=== PATIENT | male | born 1955 | race Caucasian/White ===

== ENCOUNTER 2023-08-26 08:08 | Outpatient (AMB) | payer MEDICARE, SELFPAY ==
--- NOTE | 2023-08-26 08:16 | AM.OFFWIN_ITS ---
Intake Vital Signs 08/26/23 08:17 Height 5 ft 8 in Weight 201 lb BMI 30.6 BP 118/74 Blood Pressure Location Rt brachial Position Sitting Pulse 82 Pulse Source Pulse Oximeter Pulse Oximetry (%) 96 Oxygen Delivery Method Room Air Intake Visit Reasons: EP ?Sinus Infection Intake Note: Patient here for head cold since saturday, cough, slight chest irritation and phlegm Patient Tobacco Use Status: Former Tobacco user Allergies cephalexin Allergy (Intermediate, Verified 08/26/23 08:19) hives Do you need a note to return to daycare/school/sports/work: No HPI EP ?Sinus Infection HPI Details Patient presents for a sick visit. Reporting symptoms of sinus congestion, sore throat and difficulty swallowing. Low-grade fever. No family member is sick. No recent travel. Patient reports symptoms of malaise and fatigue. [facility] Social History Patient Tobacco Use Status: Former Tobacco user Physical Exam Vital Signs: Last Vital Signs Pulse 82 08/26/23 08:17 BP 118/74 08/26/23 08:17 Pulse Ox 96 08/26/23 08:17 Oxygen Delivery Method Room Air 08/26/23 08:17 BMI result Body Mass Index 30.6 Const General: cooperative and healthy appearing Nutritional Appearance: well nourished Orientation/consciousness: patient oriented x3 Limitations: no limitations HEENT Head: Yes normal to inspection Eyes General: appearance normal, both eyes and all related structures Neck Neck: Yes normal visual inspection Chest Chest palpation & inspection: normal palpation of entire chest wall Resp Effort & Inspection: normal respiratory effort Neuro General: patient oriented x3 Assessment & Plan Assessment & Plan (1) Upper respiratory tract infection: Code(s): J06.9 - Acute upper respiratory infection, unspecified Plan: Antibiotics ordered. Increase fluid intake. Tylenol for aches and pains. If symptoms worsen, follow-up here for a recheck. Coding Level of Care Code Est Pt Level 3 (11141) Diagnoses Upper respiratory tract infection J06.9
[2023-08-26 08:17] VITALS: BP 118/74; PULSE 82; O2SAT 96; BMI 30.6
== END 2023-08-26 08:38 | disposition home or self-care (01) ==
PROVIDERS: PCP Internal Medicine; Visit Provider Internal Medicine
DX: J06.9 Acute upper respiratory infection, unspecified (principal)
CPT/HCPCS: 99213

== ENCOUNTER 2024-08-13 08:04 | Outpatient (AMB) | payer MEDICARE, SELFPAY ==
[2024-08-13 08:07] VITALS: BP 142/90; PULSE 69; TEMP 36.8; O2SAT 98; BMI 30.1
--- NOTE | 2024-08-13 08:07 | MHC.OFFWIV ---
Intake Vital Signs 08/13/24 08:07 Height 5 ft 8 in Weight 198 lb BMI 30.1 BP 142/90 H Blood Pressure Location Lt brachial Position Sitting Pulse 69 Pulse Source Pulse Oximeter Temp 98.2 F Temp Source Oral Pulse Oximetry (%) 98 Oxygen Delivery Method Room Air Intake Visit Reasons: EP sore throat/respiratory Intake Note: Patient here for respiratory issues which has been going on for about 5 days. Patient Tobacco Use Status: Former Tobacco user Allergies cephalexin Allergy (Intermediate, Verified 08/13/24 08:21) hives Do you need a note to return to daycare/school/sports/work: No HPI EP sore throat/respiratory HPI Details This note is constructed using voice recognition software. While every effort has been made to ensure accuracy, recreation program coordinator errors may have been included. The patient is a 69 year old male who presents to the clinic today with pharyngitis, cough for the past 5 days. He denies fever, chills, shortness of breath, sick exposures. He does report that he gets symptoms similar to this every year about this time a year. He also notes that he recently had a tympanostomy tube removed from his left ear about a month ago. He reports that generally he feels well, and his biggest concern is the pharyngitis. [facility] Social History Patient Tobacco Use Status: Former Tobacco user Review of Systems Const All systems reviewed & are unremarkable except as noted in HPI and below Physical Exam Vital Signs: Last Vital Signs Temp 98.2 F 08/13/24 08:07 Pulse 69 08/13/24 08:07 BP 142/90 H 08/13/24 08:07 Pulse Ox 98 08/13/24 08:07 Oxygen Delivery Method Room Air 08/13/24 08:07 BMI result Body Mass Index 30.1 Const General: cooperative, healthy appearing, comfortable and no acute distress Orientation/consciousness: patient oriented x3 Limitations: no limitations HEENT Head: Yes normal to inspection Ears: hearing grossly normal bilaterally, external ears normal and TM abnormal (Lef TM scarring present) retracted on the right General nose exam: Normal external nose present, No nasal discharge present and Abnormal mucous membranes and turbinates present boggy and pale Face and sinus: Yes normal facial exam and Yes sinuses nontender Mouth: Normal oral and palatal mucosa present and moist mucous membranes Throat: Yes tonsils normal, Yes uvula midline, Yes posterior oropharynx abnormal (Erythema), Yes postnasal drainage and Yes cobblestoning Eyes General: appearance normal, both eyes and all related structures Neck Neck: Yes normal visual inspection Resp Effort & Inspection: normal respiratory effort, able to speak in complete sentences, Actively coughing, no respiratory distress, not tachypneic, no tripod positioning and no use of accessory muscles Auscultation: clear to auscultation bilaterally Cardio Rate: regular rate Rhythm: regular rhythm Heart sounds: normal S1 and S2 Skin General skin exam: no rashes or lesions noted Neuro General: patient oriented x3 Extrem General: Yes normal to inspection and Yes no clubbing, cyanosis or edema Assessment & Plan Assessment & Plan (1) Allergic rhinitis: Code(s): J30.9 - Allergic rhinitis, unspecified Qualifiers: Allergic rhinitis trigger: pollen Allergic rhinitis seasonality: seasonal Qualified Code(s): J30.1 - Allergic rhinitis due to pollen Plan: Rapid strep test negative. Supportive measures encouraged and reviewed. Advised patient to try a Flonase nasal spray and second-generation antihistamine such as Zyrtec, Claritin, Edie or similar. Advised consideration of sinus rinse if needed. Advised patient to follow up with primary care provider with worsening or failure to resolve. Viral swab obtained to rule out Covid based on symptoms. Advised mask wearing while symptomatic and quarantine per current CDC guidelines. Reviewed at home support methods including hydration, humidification, vix vapor rub, sinus rinse. Advised follow up with worsening symptoms such as dyspnea at rest, which would require emergent evaluation. Plan See above for full details and plan. Orders: Orders SARS-CoV2/FLU/RSV Today J06.9 - Acute upper respiratory infection, unspecified Coding Level of Care Code Est Pt Level 3 (41601) Diagnoses Seasonal allergic rhinitis due to pollen J30.1 Allergic rhinitis trigger: pollen Allergic rhinitis seasonality: seasonal
== END 2024-08-13 09:14 | disposition home or self-care (01) ==
PROVIDERS: PCP Internal Medicine; Visit Provider Registered Nurse
DX: Z13.9 Encounter for screening, unspecified (principal); J30.1 Allergic rhinitis due to pollen

== ENCOUNTER 2025-07-10 09:12 | Outpatient (AMB) | payer MEDICARE, SELFPAY ==
--- NOTE | 2025-07-10 09:12 | MHC.OFFWIV ---
Intake Vital Signs 07/10/25 09:13 07/10/25 09:13 Height 20 ft 5 ft 8 in Weight 202 lb BMI 30.7 BP 132/64 Blood Pressure Location Lt brachial Position Sitting Pulse 67 Pulse Source Pulse Oximeter Temp 98.8 F Temp Source Oral Pulse Oximetry (%) 98 Oxygen Delivery Method Room Air Intake Visit Reasons: EP-Lt ankle bite/swollen Intake Note: Pt is here today c/o Lt ankle ?insect or spider bite: red and swollen x2wks Patient Tobacco Use Status: Former Tobacco user Allergies cephalexin Allergy (Intermediate, Verified 07/10/25 09:14) hives HPI HPI Comments History of Present Illness Details This is a 70-year-old male presenting for evaluation of a red lesion on the back of his left ankle that has been present for the past 2 weeks. Patient believes it was a ?bite? from a spider or tick however is unable to recall a specific event or visualizing such an insect. Patient states that it will occasionally become swollen and irritated. He denies having any fevers, chills, pain with ambulation or discharge from the lesion. [facility] Social History Patient Tobacco Use Status: Former Tobacco user Review of Systems Const All systems reviewed & are unremarkable except as noted in HPI and below Reports no additional complaints, Denies body aches, Denies chills, Denies fatigue and Denies fever(s) Eyes Reports no additional complaints ENT Reports no additional complaints Resp Reports no additional complaints Skin/Breast Reports as per HPI, Denies furuncle, Denies dry skin, Denies pruritus and Reports new lesions Neuro Reports no additional complaints Psych Reports no additional complaints Endo Reports no additional complaints and Denies fatigue Physical Exam Vital Signs: BMI result Body Mass Index 30.7 Const General: cooperative, healthy appearing, comfortable, no acute distress, well developed, alert, awake and Physically active; No acute distress or ill appearing Nutritional Appearance: well nourished Orientation/consciousness: patient oriented x3 Limitations: no limitations Skin Other: there is a 0.75 ovaloid, erythematous, indurated, non.tender lesion without warmth, tenderness or fluctuation located on the posterior ankle superior of the Achilles tendon. There is no surrounding erythema or clinical evidence of a secondary cellulitis, no evidence of a retained foreign body or subcutaneous purulence. Neuro General: patient oriented x3 Psych Appearance: grossly normal Mental Status: mental status grossly normal Insight: Good insight present (Psych) Judgement: Good judgement present (Psych) Assessment & Plan Assessment & Plan (1) Lesion of soft tissue of lower leg and ankle: Comment: There is no clinical evidence of a retained foreign body, cellulitis or abscess formation. Patient is instructed to take pictures of this lesion with a ruler or other item for measurement/perspective and follow up with his primary care provider in 2 weeks, as previously scheduled, for further evaluation and possible biopsy. No antibiotic therapy is warranted at this time. Code(s): M79.9 - Soft tissue disorder, unspecified Plan: Follow up with PCP in 2 weeks for further evaluation and care. Coding Level of Care Code Est Pt Level 3 (48667) Diagnoses Lesion of soft tissue of lower leg and ankle M79.9 Time Spent (min) 20
[2025-07-10 09:13] VITALS: BP 132/64; PULSE 67; TEMP 37.1; O2SAT 98; BMI 30.7
--- OUTSIDE RECORDS SUMMARY | 2025-07-10 09:14 | XMS_ITS | Clinical Summary ---
Author Organization [address] Address [address] [place] [address] Phone Care Team Providers Care Armored Car Driver Name Role Phone Jeremy Renner MD Primary Care Provider [phone] Allergies Active Allergy Reactions Criticality Noted Date Comments Cephalexin 04/13/2025 Other Reaction(s): full body hives Medications losartan (COZAAR) 100 mg tablet Take 1 tablet (100 mg total) by mouth 1 (one) time each day. Active simvastatin (ZOCOR) 40 mg tablet Take 0.5 tablets (20 mg total) by mouth. 07/01/2013 Active traZODone (DESYREL) 50 mg tablet Take 1 tablet (50 mg total) by mouth at bedtime as needed. at bedtime Active meloxicam (MOBIC) 15 mg tablet TAKE 1 TABLET BY MOUTH DAILY AFTER MEAL 04/05/2025 Active acetaminophen (TYLENOL) 500 mg tablet TAKE 2 TABLETS BY MOUTH EVERY 8 HOURS FOR 15 DAYS 03/26/2025 Active aspirin 325 mg EC tablet Take 1 tablet (325 mg total) by mouth 1 (one) time each day. for 30 days 03/26/2025 Active Active Problems Problem Noted Date Diagnosed Date Back pain 04/13/2025 Assessment & Plan (04/13/2025 4:57 PM EDT): Mr. Galindo describes about a month of left-sided low back pain with radiation to the left buttock and posterior thigh. This persisted despite his typical exercise and stretching routine. Fortunately, a couple of weeks ago it began to resolve. At this point he is basically pain-free. He understands that he has to watch the way he does things and use good ergonomics. We talked about appropriate use of NSAIDs. He is welcome to follow-up with us in the future on an as-needed basis. Benign essential hypertension 04/13/2025 Carcinoma of prostate (CMS/HCC V24, CMS/HCC V28) 04/13/2025 Combined forms of age-related cataract, bilatera l 04/13/2025 Dyslipidemia 04/13/2025 Hearing loss 04/13/2025 High cholesterol 04/13/2025 Hypertension 04/13/2025 Lung nodule 04/13/2025 NARESH (obstructive sleep apnea) 04/13/2025 Tightness of right gastrocnemius muscle 02/06/20 25 Swollen leg 12/07/2022 Overview (04/12/2025): Last Assessment & Plan: Mr. Galindo's right leg is a little bit swollen at the calf compared to the left leg. We will send him for an ultrasound to rule out a DVT. Lumbar radiculopathy 09/07/2022 Overview (04/12/2025): Last Assessment & Plan: Mr. Galindo is approximately 2 weeks status post right L5-S1 minimally invasive decompression and foraminotomy. He has had relief from some symptoms and other symptoms are little more intense. Overall he does note some improvement and is pleased with his early postoperative results and looking forward to more improvement in the future. We discussed nerve root healing, expectations, and timeline. He is taking Tylenol and will add ibuprofen. We talked about a short course of oral steroids or starting a neuropathic pain medication such as Neurontin but he declined both offers. He will call if things or not improving. Encounters Date Type Department Care Team Description 04/13/2025 3:00 PM EDT Office Visit [facility]surgery [facility] [address] [place] [id number] Odin Stevenson PA Acute left-sided low back pain with left-sided sciatica (Primary Dx) from Last 3 Months Immunizations Name Administration Dates Next Due Influenza, Unspecified 08/29/2022 Moderna SARS-CoV-2 COVID-19, mRNA, LNP-S, preservative free 01/24/2021,12/27/2020 Pneumococcal Conjugate Vaccine, 7 Valent 023 Pneumococcal polysaccharide 23 valent (Pneumovax 23) 2yo and older 10/04/2017 Tdap Tetanus diptheria acell ular pertussis (Boostrix; Adacel) 7yo and older 10/11/2021,04/12/2016 Zoster recombinant (Shingrix) 19yo and older ,02/13/2022 Surgical History Surgery Date Site/Laterality Comments HAND SURGERY 2019 Left PROCEDURE: HISTORICAL HAND SURGERY Medical History Medical History Date Comments Depressive disorder DX:Depressiv e disorder Heart disease DX:Heart disease Essential hypertension DX:Essent ial hypertension Mixed hyperlipidemia DX:Mixed hy perlipidemia Social History Tobacco Use Types Packs/Day Years Used Date Smoking Tobacco: Never Smokeless Tobacco: Never Tobacco Cessation:Counseling Given: Not Answered Alcohol Use Standard Drinks/Week Comments Never 0 (1 standard drink = 0.6 oz pur e alcohol) Sex and Gender Information Value Date Recorded Sex Assigned at Not on file Legal Sex Male 8:53 PM EST Gender Identity Not on file Sexual Orientation Not on file Obstetrics History Last Filed Vital Signs Vital Sign Reading Time Taken Comments Blood Pressure - - Pulse - - Temperature - - Respiratory Rate - - Oxygen Saturation - - Inhaled Oxygen Concentration - - Weight 90.7 kg (200 lb) 04/13/2025 3:15 PM EDT Height 172.7 cm (5' 8 ) 04/13/2025 3:15 PM EDT Body Mass Index 30.41 04/13/2025 3:15 PM EDT Plan of Treatment Health Maintenance Due Date Last Done Comments Pneumococcal Vaccine: 50+ Years (2 of 2 - PCV) 10/04/2018 10/04/2017 Cholesterol Screening (Lipid Panel) 11/22/2023 Colorectal Cancer Screening: Colonoscopy 11/22/2023 Falls Risk Assessment 11/22/2023 Hepatitis C Screening 11/22/2023 Medicare Annual Wellness Visit 11/22/2023 Social Influencers of Health Screening 11/22/2023 Depression Screening 10/28/2024 Hypertension/CHF/CAD Annual BMP Blood Test 04/14/2025 COVID-19 Vaccine (4 - 2024-2 6 season) 2025 08/21/2021, 01/24/2021, 12/27/2020 Influenza Vaccine (#1) 2025 08/29/2022 RSV Immunization Adult Patients (1 - 1-dose 75+ series) 2028 DTaP,Tdap,and Td Vaccines (3 - Td or Tdap) 10/11/2031 10/11/2021, 04/12/2016 Zoster Vaccines Completed 08/23/2022, 02/13/2022 HIB Vaccines Aged Out No longer eligi ble based on patient's age to complete this topic HPV Vaccines Aged Out No longer eligi ble based on patient's age to complete this topic Hepatitis A Vaccines Aged Out No long er eligible based on patient's age to complete this topic Hepatitis B Vaccines Aged Out No long er eligible based on patient's age to complete this topic IPV Vaccines Aged Out No longer eligi ble based on patient's age to complete this topic MMR Vaccines Aged Out No longer eligi ble based on patient's age to complete this topic Meningococcal ACWY Vaccine Aged Out N o longer eligible based on patient's age to complete this topic Meningococcal B Vaccine Aged Out No l onger eligible based on patient's age to complete this topic RSV Immunization Patients Under 20 months Aged Out No longer eligible b ased on patient's age to complete this topic Varicella Vaccines Aged Out No longer eligible based on patient's age to complete this topic Insurance MEDICARE [facility] Care Teams Armored Car Driver Relationship Specialty Start Date End Date Jeremy Renner MD [address] [place] [phone] PCP - General Internal Medicine 01/29/25
--- OUTSIDE RECORDS SUMMARY | 2025-07-10 09:14 | XMS_ITS | Patient Health Record ---
Author Organization [facility] Perla [address] Address [address] [facility] [place] [address] Care Team Providers Care Customer Solutions Supervisor Name Role Phone Jud OCHOA, Jeremy Primary Care Provider Unavailab Samy Puga Unavailable [phone] Allergies No Known Allergies Reason For Referral No Information Medications Medication SIG (Take, Route, Frequency, Duration) Notes Start Date End Date Status Aspirin 81 MG Orally Active Co Q 10 Active Ibuprofen Active Losartan Potassium 25 MG 1 tablet Orally Once a day; Duration: 30 day(s) Active Multi For Him Active Simvastatin Active ASO Ankle/Foot Stablizing AFO As directed Wear Daily; Duration: as needed 03/02/2022 Active Centrum Not-Taking Lisinopril Not-Takin g Immunizations Vaccine Route Administration Date Status Comme nts COVID-19 Moderna Vaccine Unknown 07/27/2021 Administered 1st 12/27/2020 2nd 01/24/2021 Social History Tobacco Use: Social History Observation Description Date Details (start date - stop date) Former Smoker NA - 10/28/1975 Tobacco Use/Smoking Question Answer Notes Are you a: former smoker When did you stop smoking? 10/28/1975 Additional Findings: Tobacco Non-User Current no n-smoker Alcohol Screen Question Answer Notes Did you have a drink contain ing alcohol in the past year? Yes How often did you have a dri nk containing alcohol in the past year? 4 or more times a week (4 points) Points 4 Interpretation Positive Tobacco use other than smoking: Question Answer Notes Are you an other tobacco user? No Plan Of Treatment Pending Test Test Name Order Date X ray : Foot, right 3V 11/14/[id number], [id number] INJECT TENDON ORIGIN/INSER T 03/02/2022 Insurance Providers Payer Name Payer Address Payer Phone Subscriber Number Group Number Insured Name Patient Relationship to Insured Coverage Start Date Coverage End Date Medicare National Gov[employer] S[employer] [address] [place] [address] [id number] Walker Galindo Self - patient is the insured [employer] [address] [place] [address] [id number] Walker Galindo Self - patient is the insured Medical (General) History Medical History History ICD Code Cholesterol Heart disease Measles Mumps Chicken pox High blood pressure Back,Hip,and Knee pain Cardiomyopathy Colonic polyps Surgical History Surgery Date(Month/Year) left knee right knee Hand Surgery-left 06/2018 R leg Suture 09/2021
--- OUTSIDE RECORDS SUMMARY | 2025-07-10 09:14 | XMS_ITS | Encounter Summary ---
Author Organization [facility] Address [address] [place] [address] Care Team Providers Care Hackler Doll Wigs Name Role Phone Jeremy Renner MD Primary Care Provider [phone] Encounter Details Date Type Department Care Team (Late st Contact Info) Description 01/29/2025 Lab Requisition [facility] - Main Lab [address] [facility] [address] Ken Prajapati MD [address] [place] [address] Urinary tract infection, site not specified Social History Tobacco Use Types Packs/Day Years Used Date Smoking Tobacco: Never Smokeless Tobacco: Never Alcohol Use Standard Drinks/Week Comments Never 0 (1 standard drink = 0.6 oz pur e alcohol) Sex and Gender Information Value Date Recorded Sex Assigned at Not on file Legal Sex Male 8:53 PM EST Gender Identity Not on file Sexual Orientation Not on file documented as of this encounter Plan of Treatment Not on file documented as of this encounter Procedures Procedure Name Priority Date/Time Associated Diagnosis Comments URINALYSIS WITH REFLEX MICROSCOPIC Routine 01/29/2025 9:15 AM EDT Urinary tract infection, site not specified URINALYSIS WITH REFLEX MICROSCOPIC Routine 01/29/2025 9:15 AM EDT Urinary tract infection, site not specified CULTURE URINE Routine 01/29/2025 9:15 AM EDT Urinary tract infection, site not specified documented in this encounter Results * Urinalysis with reflex microscopic (01/29/2025 9:15 AM EDT) Specific [place] Urine 1.012 1.003 - 1.030 LAB URINALYSIS - AUTOMATED METHOD 01/29/2025 12:08 PM [facility] pH, Urine 6.0 5.0 - 8.0 pH LAB URINALYSIS - AUTOMATED METHOD 01/29/2025 12:08 PM [facility] Leukocytes, Urine Negative Negative LAB URINALYSIS - AUTOMATED METHOD 01/29/2025 12:08 PM [facility] Nitrite, Urine Negative Negative LAB URINALYSIS - AUTOMATED METHOD 01/29/2025 12:08 PM [facility] Protein, Urine Negative <=Trace mg/dL LAB URINALYSIS - AUTOMATED METHOD 01/29/2025 12:08 PM [facility] Glucose, Urine Negative Negative mg/dL LAB URINALYSIS - AUTOMATED METHOD 01/29/2025 12:08 PM [facility] Ketones, Urine Negative Negative mg/dL LAB URINALYSIS - AUTOMATED METHOD 01/29/2025 12:08 PM [facility] Urobilinogen, Urine 0.2 0.2 - 1.0 mg/dL LAB URINALYSIS - AUTOMATED METHOD 01/29/2025 12:08 PM [facility] Bilirubin, Urine Negative Negative LAB URINALYSIS - AUTOMATED METHOD 01/29/2025 12:08 PM [facility] Blood, Urine Negative Negative LAB URINALYSIS - AUTOMATED METHOD 01/29/2025 12:08 PM [facility] Urine Urine specimen obtained by clean catch procedure / Unknown 01/29/2025 9:15 AM EDT 01/29/2025 11:59 AM EDT Ken Prajapati MD LAB URINE ORDERABLES Final Resu lt Performing Organization Address City/[facility]/ZIP Co de Phone Number [facility] [address] [place] [address], [place] [phone] * Culture urine (01/29/2025 9:15 AM EDT) Culture, Urine No growth 01/30/2025 10:49 AM EDT [facility] Urine Urine specimen obtained by clean catch procedure / Unknown 01/29/2025 9:15 AM EDT 01/29/2025 11:59 AM EDT Ken Prajapati MD LAB MICROBIOLOGY - GENERAL ORDE RABLES Final Result Performing Organization Address [facility]/ZIP Co de Phone Number [facility] [address] [place] [address], [place] [phone] documented in this encounter Visit Diagnoses Diagnosis Urinary tract infection, site not specified documented in this encounter Care Teams Hackler Doll Wigs Relationship Specialty Start Date End Date Jeremy Renner MD [address] [place] [phone] PCP - General Internal Medicine 01/29/25 documented as of this encounter
== END 2025-07-10 09:38 | disposition home or self-care (01) ==
LOC: HO.HMCWIC 09:12
PROVIDERS: PCP Internal Medicine; Visit Provider Physician Assistant
DX: M79.9 Soft tissue disorder, unspecified (principal)

== ENCOUNTER → 2025-07-10 09:12 | Outpatient (BNVA) | payer MEDICARE, SELFPAY | PROVIDERS: PCP Internal Medicine; Visit Provider Physician Assistant | DX: M79.9 Soft tissue disorder, unspecified (principal) | CPT/HCPCS: 99212 ==